=== PATIENT | male | born 1950 | race Caucasian/White ===

== ENCOUNTER 2021-06-15 08:37 | Day surgery (SDC) | payer MEDICARE, BC ==
[2021-06-10 17:29] LABS: BASOPHILS % (AUTO) 0.6 % (0-1); EOSINOPHILS # (AUTO) 0.2 X10'3 (0-0.9); EOSINOPHILS % (AUTO) 2.6 % (0-6); LYMPHOCYTES # (AUTO) 2.1 X10'3 (1.1-4.8); LYMPHOCYTES % (AUTO) 30.4 % (21-51); MEAN CORPUSCULAR HEMOGLOBIN 29.3 PG (27.0-31.0); MEAN CORPUSCULAR VOLUME 88.8 FL (78-98); MEAN PLATELET VOLUME 9.2 FL (7.4-10.4); MONOCYTES # (AUTO) 0.7 X10'3 (0-0.9); MONOCYTES % (AUTO) 9.9 % (2-12); NEUTROPHILS % (AUTO) 56.5 % (42-75); PRE OP HEMATOCRIT 43.8 % (42.0-52.0); PRE OP HEMOGLOBIN 14.4 g/dL (14.0-17.9); PRE OP PLATELET COUNT 232 X10'3 (140-440); RED BLOOD COUNT 4.94 X10'6 (4.70-6.10); RED CELL DISTRIBUTION WIDTH 15.4 % (11.5-14.5)
[2021-06-10 17:34] LABS: CLARITY,URINE CLEAR (Clear); COLOR,URINE YELLOW (Yellow); GLUCOSE, URINE NEGATIVE (Neg); KETONES,URINE NEGATIVE (Neg); LEUKOCYTE ESTERASE ,URINE NEGATIVE (Neg); NITRITES, URINE NEGATIVE (Neg); OCCULT BLOOD,URINE MODERATE (Neg); PH,URINE 5.5 (4.8-8.0); PROTEIN,URINE NEGATIVE (Neg); UROBILINOGEN,URINE 0.2 E.U/dL (0.2-1.0)
[2021-06-10 17:39] LABS: ALBUMIN 3.7 G/DL (3.4-5.0); ALKALINE PHOSPHATASE 84 IU/L (46-116); BLOOD UREA NITROGEN 23 MG/DL (7-18); BUN/CREATININE RATIO 21.1 (5.4-32.0); CALCIUM 9.6 MG/DL (8.5-10.1); CHLORIDE 108 MMOL/L (99-107); CREATININE 1.09 MG/DL (0.60-1.10); PRE OP ALT 29 U/L (30-65); PRE OP ANION GAP 10 (8-16); PRE OP AST 21 U/L (10-37); PRE OP BILIRUB, TOTAL 0.4 MG/DL (0.0-1.0); PRE OP GLUCOSE 117 MG/DL (70-104); PRE OP POTASSIUM 4.5 MMOL/L (3.4-5.1); PRE OP SODIUM 143 MMOL/L (135-145); TOTAL PROTEIN 7.5 G/DL (6.4-8.2); eGFR 67 ML/MIN
[2021-06-10 17:46] LABS: UA COLLECTION TYPE NON-SPECIFIED
[2021-06-10 17:47] LABS: BACTERIA,URINE NONE SEEN /HPF (Neg); MUCUS STRANDS NONE SEEN /LPF (Neg); RBC,URINE 0-2 /HPF (0-2); SQUAMOUS EPITHELIAL CELL,UR NONE SEEN /LPF (FEW); WBC,URINE NONE SEEN /HPF (0-4)
[~2021-06-15] VITALS: Ht 170.2 cm; Wt 104.0 kg
[2021-06-15] VITALS (13 sets, daily range): BP systolic 136–169; BP diastolic 77–95
[~2021-06-15 08:37] MED LIST: ALLO100T PO; GLIP5TAB26 PO; METF500T PO; MVI; OLME40TA18 PO; OMEP-50 PO; TRAZ-251 PO; VITAMIN D; cefazolin/dext.iso 2gm/100ml IV ONE; famotidine 20mg tablet PO ONE; ringers solution, lacted 1,000 ML IV SCH
[2021-06-15] MEDS ORDERED: fentaNYL/PF 50MCG/1 ML 2ML syringe IV PRN ×2 (12:25)
[2021-06-15] MEDS ORDERED: morphine 2 MG/ML inj. syringe IV PRN (12:25)
[2021-06-15] MEDS ORDERED: hydrALAZINE 20mg/ml inj. IV PRN (12:25)
[2021-06-15] MEDS ORDERED: ringers solution, lacted 1,000 ML IV SCH (12:25)
[2021-06-15] MEDS ORDERED: ondansetron/PF 4mg/2ml inj IV PRN (12:25)
[2021-06-15] MEDS ORDERED: labetalol 20mg/4ml (5mg/ml) syringe IV PRN (12:25)
[2021-06-15] MEDS ORDERED: morphine 4 MG/ML inj SYRINge IV PRN (12:25)
[2021-06-15] MEDS ORDERED: BUPIVAcaine/PF 2.5mg/ml (0.25%) 10ml vial IJ ONE (13:20)
[2021-06-15] MEDS ORDERED: fentaNYL/PF 50MCG/1 ML 2ML syringe ONE (13:20)
[2021-06-15] MEDS ORDERED: labetalol 20mg/4ml (5mg/ml) syringe IV ONE (13:25)
[2021-06-15] MEDS ORDERED: ondansetron/PF 4mg/2ml inj ONE (13:26)
[2021-06-15] MEDS ORDERED: propofol inj 20 ML IV ONE (13:26)
[2021-06-15] MEDS ORDERED: rocuronium 10mg/ml inj IV ONE (13:26)
[2021-06-15] MEDS ORDERED: LIDOcaine 1%/PF 5ML 10 MG/ML VIAL ONE (13:26)
[2021-06-15] MEDS ORDERED: dexamethasone sod phosphate 4mg/ml inj. ONE (13:26)
[2021-06-15] MEDS ORDERED: glycopyrrolate 0.2mg/ml inj ONE (13:58)
[2021-06-15] MEDS ORDERED: neostigmine methylsulfate 1 MG/ML 10ml vial ONE (13:58)
--- NOTE | 2021-06-15 14:21 | NUR ---
Received from OR via [facility] , accompanied by Anesthesiologist ANTWON and report given by Anesthesiolgist. PATIENT WITH 20G PIV IN LEFT UE RUNNING LR AT 100, DENIES PAIN AT THIS TIME. RESIDUAL BLADDER SCAN REVEALS 5CC. 10LMASK ON WITH 100% SATURATIONS. 4 LAP SITES TO ABDOMEN THAT ARE COVERED WITH NO DRAINAGE PRESENT. Addendum: 06/15/21 at 1442 by Duke Cai RN, RN Amended: Links added.
--- NOTE | 2021-06-15 16:11 | NUR ---
ALL DISCHARGE CRITERIA HAS BEEN MET. VSS, PAIN AT A TOLERABLE LEVEL, VOIDING AND ABLE TO SAFELY AMBULATE AND TRANSFER SELF. IV TAKEN OUT WITHOUT ANY COMPLICATIONS. ALL DISCHARGE INSTRUCTIONS COVERED WITH PATIENT AND ALL QUESTIONS ANSWERED. PATIENT TAKEN OUT VIA WHEELCHAIR TO PERSONAL VEHICLE WHERE FAMILY/FRIEND DROVE PATIENT HOME. FATHER DROVE PATIENT HOME. Addendum: 06/15/21 at 1645 by Duke Cai RN, RN Amended: Links added.
== END 2021-06-15 16:11 | disposition home or self-care (01) ==
LOC: PAS 08:37
PROVIDERS: ATTEND Surgery
DX: K80.10 Calculus of gallbladder with chronic cholecystitis without obstruction (principal); G89.29 Other chronic pain; F32.9 Major depressive disorder, single episode, unspecified; E11.9 Type 2 diabetes mellitus without complications; K21.9 Gastro-esophageal reflux disease without esophagitis; I10 Essential (primary) hypertension; G47.30 Sleep apnea, unspecified; E66.9 Obesity, unspecified; Z68.35 Body mass index [BMI] 35.0-35.9, adult; Z98.84 Bariatric surgery status; Z98.890 Other specified postprocedural states; Z85.828 Personal history of other malignant neoplasm of skin; Z87.891 Personal history of nicotine dependence; Z79.84 Long term (current) use of oral hypoglycemic drugs; Z88.8 Allergy status to other drugs, medicaments and biological substances; Z79.899 Other long term (current) drug therapy; Z87.442 Personal history of urinary calculi; Z85.820 Personal history of malignant melanoma of skin; Z20.822 Contact with and (suspected) exposure to COVID-19; Z80.1 Family history of malignant neoplasm of trachea, bronchus and lung
CPT/HCPCS: 36415; 47562; 80053; 81001; 82948; 85025; 87635; 93005; C9803; J1100; J2405; J2704; J2710; J3010; J3490; J7120; Z7506; Z7508; Z7512; A4215; A4618; A7000

== ENCOUNTER 2022-02-21 10:03 | Day surgery (SDC) | payer MEDICARE, BC ==
[2022-02-16 11:37] LABS: BASOPHILS % (AUTO) 0.5 % (0-1); EOSINOPHILS # (AUTO) 0.2 X10'3 (0-0.9); EOSINOPHILS % (AUTO) 2.8 % (0-6); HEMATOCRIT 44.5 % (42.0-52.0); LYMPHOCYTES % (AUTO) 30.7 % (21-51); MEAN CORPUSCULAR HEMOGLOBIN 29.5 PG (27.0-31.0); MEAN CORPUSCULAR HGB CONC 33.7 g/dL (33.0-36.5); MEAN CORPUSCULAR VOLUME 87.6 FL (78-98); MEAN PLATELET VOLUME 9.5 FL (7.4-10.4); MONOCYTES # (AUTO) 0.7 X10'3 (0-0.9); MONOCYTES % (AUTO) 10.3 % (2-12); NEUTROPHILS # (AUTO) 3.6 X10'3 (1.8-7.7); NEUTROPHILS % (AUTO) 55.7 % (42-75); PLATELET COUNT 212 X10'3 (140-440); RED BLOOD COUNT 5.08 X10'6 (4.70-6.10); RED CELL DISTRIBUTION WIDTH 14.1 % (11.5-14.5); WHITE BLOOD COUNT 6.4 X10'3 (4.5-11.0)
[2022-02-16 11:43] LABS: APTT 27 SECONDS (22-32)
[2022-02-16 12:03] LABS: ALBUMIN 3.6 G/DL (3.4-5.0); ANION GAP 12 (8-16); BLOOD UREA NITROGEN 19 MG/DL (7-18); CALCIUM 8.9 MG/DL (8.5-10.1); CHLORIDE 103 MMOL/L (99-107); CREATININE 0.95 MG/DL (0.60-1.10); GLUCOSE 169 MG/DL (70-104); POTASSIUM 4.4 MMOL/L (3.5-5.1); SODIUM 139 MMOL/L (135-145); TOTAL CARBON DIOXIDE 24.3 MMOL/L (24-32); eGFR 78 ML/MIN
[2022-02-21] VITALS (9 sets, daily range): BP systolic 115–137; BP diastolic 63–90
[~2022-02-21] VITALS: Ht 170.2 cm; Wt 105.1 kg
[~2022-02-21 10:03] MED LIST changes: -OMEP-50 PO; +OMEP20CA16 PO; -cefazolin/dext.iso 2gm/100ml IV ONE; -famotidine 20mg tablet PO ONE; -ringers solution, lacted 1,000 ML IV SCH
[2022-02-21] MEDS ORDERED: diphenhydrAMINE 25mg capsule PO PRN (10:20)
[2022-02-21] MEDS ORDERED: normal saline 1,000 ML IV SCH (10:20)
[2022-02-21] MEDS ORDERED: LORazepam 0.5 MG tablet PO PRN (10:20)
[2022-02-21] MEDS ORDERED: SILD100T70 PO (10:44)
[2022-02-21] MEDS ORDERED: PRAV20TA4 PO (10:44)
[2022-02-21] MEDS ORDERED: CETI10CA PO (10:53)
[2022-02-21] MEDS ORDERED: MULT-1085 PO (10:53)
[2022-02-21] MEDS ORDERED: CHOL20002 PO (10:53)
[2022-02-21] MEDS ORDERED: MAGN400C PO (10:53)
[2022-02-21] MEDS ORDERED: verapamil 2.5 mg/ml inj IV ONE (13:11)
[2022-02-21] MEDS ORDERED: nitroGLYCERIN-Tridil 50MG/D5W 250 ML IV ONE (13:11)
[2022-02-21] MEDS ORDERED: LIDOcaine 1% (10mg/ml)w/preservative inj. 20ml MDV ONE (13:12)
[2022-02-21] MEDS ORDERED: iohexol 350MG/ML 100ml bottle IV ONE ×2 (13:12→13:58)
[2022-02-21] MEDS ORDERED: midazolam 1 mg/ML 2ml injection ONE (13:12)
[2022-02-21] MEDS ORDERED: fentaNYL/PF 50MCG/1 ML 2ML syringe ONE (13:12)
[2022-02-21] MEDS ORDERED: heparin 1,000unit/ml 10ml vial 10 ML ONE (13:12)
[2022-02-21] MEDS ORDERED: iohexol 350 MG/ML 50ML vial IV ONE (13:56)
[2022-02-21] MEDS ORDERED: clopidogrel 300mg tablet ONE (14:02)
[2022-02-21] MEDS ORDERED: aspirin 325mg tablet ONE (14:02)
[2022-02-21] MEDS ORDERED: HYDROcodone/acetaminophen 5mg/325mg tablet PO PRN (15:15)
[2022-02-21] MEDS ORDERED: HYDROcodone/acetaminophen 10/325mg tab PO PRN (15:15)
--- NOTE | 2022-02-21 16:32 | NUR ---
Spoke with father Mcgee who will slate picker 3 new RX's from [facility] on [facility] prior to picking up patient. Have confirmed with Pharmacist they have received new RX.
== END 2022-02-21 17:54 | disposition home or self-care (01) ==
LOC: SSTAY O 10:03
PROVIDERS: ATTEND Internal Medicine Interventional Cardiology
DX: R94.39 Abnormal result of other cardiovascular function study (principal); R07.89 Other chest pain; I25.10 Atherosclerotic heart disease of native coronary artery without angina pectoris; E11.9 Type 2 diabetes mellitus without complications; I11.9 Hypertensive heart disease without heart failure; K21.9 Gastro-esophageal reflux disease without esophagitis; F32.A Depression, unspecified; E78.5 Hyperlipidemia, unspecified; Z88.8 Allergy status to other drugs, medicaments and biological substances; Z79.899 Other long term (current) drug therapy; Z79.84 Long term (current) use of oral hypoglycemic drugs; Z90.49 Acquired absence of other specified parts of digestive tract; Z98.890 Other specified postprocedural states; Z98.84 Bariatric surgery status; F17.220 Nicotine dependence, chewing tobacco, uncomplicated; Z72.89 Other problems related to lifestyle; Z82.3 Family history of stroke; Z80.1 Family history of malignant neoplasm of trachea, bronchus and lung; Z80.8 Family history of malignant neoplasm of other organs or systems; Z82.49 Family history of ischemic heart disease and other diseases of the circulatory system
CPT/HCPCS: 36415; 80048; 85025; 85610; 85730; 93005; 93458; 99152; 99153; C1725; C1751; C1769; C1874; C1892; C1894; C9600; J1644; J2250; J3010; J3490; Q9967; A4620; A5120

== ENCOUNTER 2022-12-15 14:33 | Outpatient (CLI) | payer MEDICARE, BC ==
[~2022-12-15 14:33] MED LIST changes: -ALLO100T PO; +CETI10CA PO; +CHOL20002 PO; +MAGN400C PO; +MULT-1085 PO; -MVI; +PRAV20TA4 PO; +SILD100T70 PO; -TRAZ-251 PO; -VITAMIN D
== END 2022-12-15 23:59 | disposition home or self-care (01) ==
LOC: RAD 14:33
PROVIDERS: ATTEND Internal Medicine Cardiovascular Disease
DX: I34.81 Nonrheumatic mitral (valve) annulus calcification (principal)
CPT/HCPCS: 93306